=== PATIENT | male | born 1955 | race Caucasian/White ===

== ENCOUNTER 2022-06-24 11:49 | Emergency (ER) | payer MEDICARE, OTHER ==
[2022-06-24 12:25] LABS: HEMOGLOBIN 11.7 gm/dl (14.0-17.5); RED BLOOD COUNT 3.72 M/UL (4.20-5.50); WHITE BLOOD COUNT 7.6 K/UL (4.5-11.0)
[2022-06-24 13:11] LABS: BUN/CREATININE RATIO 15 (0-10)
== END 2022-06-24 14:38 | disposition home or self-care (01) ==
LOC: ER1 11:49
PROVIDERS: Family Medicine
DX: I10 Essential (primary) hypertension (principal); H53.9 Unspecified visual disturbance; F17.200 Nicotine dependence, unspecified, uncomplicated
CPT/HCPCS: 70450; 71045; 80053; 82550; 82553; 84484; 85025; 93005; 99285